=== PATIENT | male | born 1945 | race Caucasian/White ===

== ENCOUNTER 2017-05-25 10:46 | Day surgery (SDC) | payer OTHER ==
[~2017-05-25] VITALS: Ht 182.9 cm; Wt 109.8 kg
[~2017-05-25 10:46] MED LIST: ALLOPURINOL300 MG PO; ALOE VERA25 MG PO; AMLODIPINE BESYL5 MG PO; Ascorbic Acid,Ester- PO; COUMADIN5 MG PO; CRESTOR40 MG PO; CUBICIN500 MG/10 IV; CYMBALTA60 MG PO; FENTANYL1 EAC4 TD; FENTANYL1 EAC5 TD; FLORASTOR250 MG PO; Folvite PO; GABAPENTIN600 MG PO; GLUCOPHAGE500 MG PO; JANUVIA100 MG PO; K-DUR20 MEQ PO; K-Dur PO; KRILL OIL500 MG PO; LASIX40 MG PO; Lopressor PO; METOPROLOL SUC100 MG PO; MINIMED RESERV1 EAC1; NABUMETONE750 MG PO; NEURONTIN300 MG PO; NOVOLOG PE100 UNITS/ SC; NUCYNTA ER100 MG PO; NUCYNTA100 MG PO; Neurontin PO; Norvasc PO; Nucynta PO; ONDANSETRON4 MG/2 ML IM; PANTOPRAZOLE SO40 MG PO; PERCOCET 5/31 TABLET PO; POTASSIUM CHLO20 ME2 PO; PROTONIX40 MG PO; Percocet 5/325,Endoc PO; Protonix PO; SANTYL30 GM TP; Santyl TP; TOPAMAX50 MG PO; TOPROL XL100 MG PO; TYLENOL REGULA325 MG PO; Theragran PO; Vancomycin IV; Vitamin B-12 PO; Vitamin D PO; XARELTO20 MG PO; Xarelto PO; ZYLOPRIM150 MG PO; Zyloprim PO; [UNRECOGNIZED DRUG - REMARK] PO
== END 2017-05-25 12:15 | disposition home or self-care (01) ==
LOC: PAIN 10:46 → SDC 11:15 → PAIN 11:15
DX: M47.26 Other spondylosis with radiculopathy, lumbar region (principal); M54.5 Low back pain; G89.29 Other chronic pain; I12.9 Hypertensive chronic kidney disease with stage 1 through stage 4 chronic kidney disease, or unspecified chronic kidney disease; E11.22 Type 2 diabetes mellitus with diabetic chronic kidney disease; N18.9 Chronic kidney disease, unspecified; E78.5 Hyperlipidemia, unspecified; G47.33 Obstructive sleep apnea (adult) (pediatric); M48.061 Spinal stenosis, lumbar region without neurogenic claudication; I48.91 Unspecified atrial fibrillation; Z79.01 Long term (current) use of anticoagulants
CPT/HCPCS: J1030; J2250; J3010; S0020